=== PATIENT | female | born 1960 | race Caucasian/White ===

== ENCOUNTER 2016-10-15 14:58 | Emergency (ER) | payer BC ==
[2016-10-15] MEDS ORDERED: L.E.T. 3 ML SOLUTION TOPICAL ONE (17:13)
[2016-10-15] MEDS ORDERED: LIDOCAINE/EPI 1% MDV 20 ML ONE (18:24)
[2016-10-15] MEDS ORDERED: TDaP 0.5 ML VIAL IM.VACC ONE (20:14)
== END 2016-10-15 20:44 | disposition home or self-care (01) ==
LOC: ER 14:58
CPT/HCPCS: 90471